=== PATIENT | female | born 1935 | race Caucasian/White ===

== ENCOUNTER 2016-11-04 00:18 | Emergency (ER) | payer OTHER ==
[~2016-11-04] VITALS: Ht 165.1 cm; Wt 70.5 kg
[2016-11-04 01:25] LABS: HEMATOCRIT 43.6 % (36.0-46.0); MCH 32.4 PG (29.0-34.0); MCHC 33.5 G/DL (30.0-36.0); MCV 96.7 FL (83-99); MEAN PLAT.VOLUME 10.7 uM^3 (9.5-12.4); PLATELET COUNT 198 K/uL (156-360); RBC DIS.WIDTH-CV 13.8 % (11.8-14.6); RBC DIS.WIDTH-SD 49.5 % (39-53); RED BLOOD COUNT 4.51 M/uL (3.80-5.20); WHITE BLOOD COUNT 8.5 K/uL (4.1-10.2)
[2016-11-04 01:37] LABS: CHLORIDE 107 mEq/L (99-109); POTASSIUM 3.3 mEq/L (3.7-5.4); SODIUM 144 mEq/L (136-147)
[2016-11-04 01:39] LABS: GLUCOSE 131 mg/dL (70-99); PROTHROMBIN TIME 10.6 SEC (10.2-12.9)
[2016-11-04 01:40] LABS: ANION GAP 10 MEQ/L (2-14)
[2016-11-04 01:42] LABS: GFR ESTIMATE (CALCULATED) > 59 mL/min/; PTT 31.3 SEC (25-37)
[2016-11-04 01:43] LABS: UREA NITROGEN (BUN) 27 mg/dL (9-23)
[2016-11-04] MEDS ORDERED: NORCO 5/3251 TABLET PO (02:08)
[2016-11-04 02:43] VITALS: BP 158/85
== END 2016-11-04 02:45 | disposition home or self-care (01) ==
LOC: EDBD 00:18 → EME 00:18
PROVIDERS: Emergency Medicine
DX: S93.402A Sprain of unspecified ligament of left ankle, initial encounter (principal); S20.211A Contusion of right front wall of thorax, initial encounter; S60.211A Contusion of right wrist, initial encounter; S80.01XA Contusion of right knee, initial encounter; W18.30XA Fall on same level, unspecified, initial encounter; Z79.01 Long term (current) use of anticoagulants; Z79.82 Long term (current) use of aspirin; I10 Essential (primary) hypertension
CPT/HCPCS: 71101; 73110; 73564; 73610; 80048; 85027; 85610; 85730; 99281; 99284